=== PATIENT | female | born 1980 | race Caucasian/White ===

== ENCOUNTER 2021-03-15 14:27 | Emergency (ER) | payer MEDICAID ==
[~2021-03-15] VITALS: Ht 152.4 cm; Wt 90.0 kg
[2021-03-15 14:37] VITALS: BP 140/89
[2021-03-15] MEDS ORDERED: ACETAMINOPHEN 325MG TABLET PO ONE (15:00)
[2021-03-15] MEDS ORDERED: LIDOCAINE HCL/EPINEPHRINE 1%-EPI 1:100,000 20 ML VIAL INFIL ONE (15:00)
[2021-03-15] MEDS ORDERED: BACITRACIN ZINC OINT UDPKT TOP ONE (15:00)
[2021-03-15] MEDS ORDERED: IBUPROFEN 600MG TABLET PO ONE (15:00)
[2021-03-15] MEDS ORDERED: TETANUS, DIPHTHERIA, PERTUSSIS VAC/PF 0.5ML (>7YR OLD) IM ONE (15:00)
[2021-03-15] MEDS ORDERED: TOPUD MT (16:03)
== END 2021-03-15 16:20 | disposition home or self-care (01) ==
LOC: ER 14:27
DX: S51.811A Laceration without foreign body of right forearm, initial encounter (principal); W25.XXXA Contact with sharp glass, initial encounter; Y93.89 Activity, other specified; Y92.89 Other specified places as the place of occurrence of the external cause; Y99.8 Other external cause status
CPT/HCPCS: 12002; 73090; 81025; 90471; 90715; 99284; J3490

== ENCOUNTER 2021-03-17 13:48 | Emergency (ER) | payer MEDICAID ==
[~2021-03-17] VITALS: Ht 157.5 cm; Wt 91.0 kg
[~2021-03-17 13:48] MED LIST: TOPUD MT
[2021-03-17 14:15] VITALS: BP 134/81
[2021-03-17] MEDS ORDERED: BO1 TP (16:05)
== END 2021-03-17 16:15 | disposition home or self-care (01) ==
LOC: ER 14:04
DX: S51.811D Laceration without foreign body of right forearm, subsequent encounter (principal); X58.XXXD Exposure to other specified factors, subsequent encounter
CPT/HCPCS: 99283

== ENCOUNTER 2021-03-27 14:52 | Emergency (ER) | payer MEDICAID ==
[~2021-03-27] VITALS: Ht 157.5 cm; Wt 91.0 kg
[~2021-03-27 14:52] MED LIST changes: +BO1 TP
[2021-03-27 15:01] VITALS: BP 138/49
[2021-03-27] MEDS ORDERED: BACITRACIN ZINC OINT UDPKT TOP ONE (16:15)
== END 2021-03-27 16:36 | disposition home or self-care (01) ==
LOC: ER 14:52
DX: Z48.02 Encounter for removal of sutures (principal)
CPT/HCPCS: 99282; Z7610